=== PATIENT | male | born 1965 | race Caucasian/White ===

== ENCOUNTER → 2016-11-19 | Outpatient (CLI) | payer BC ==
[~2016-11-19] MED LIST: FINA5TAB PO; MULT-506 PO; SIMV20TA2 PO
--- NOTE | 2016-11-19 12:34 | DIAGNOSTIC IMAGING REPORT ---
ABDOMINAL ULTRASOUND COMPLETE HISTORY: Generalized abdominal pain.. COMPARISON: None. FINDINGS: Pancreas: The pancreas demonstrates a normal echotexture. Liver: There is a 7 mm septated cyst within the right hepatic lobe. There is a 2 mm of the calcification. There are 2 hyperechoic foci within the right hepatic lobe measuring 1.2 and 0.7 cm in size. Gallbladder: No gallbladder wall thickening. No gallstones. CBD: 5 mm. Kidneys: No hydronephrosis. Best seen on image 70, there is a possible 1.2 cm hypoechoic lesion within the upper pole of the left kidney. Spleen: Normal in size. Aorta: Normal in caliber. Bladder: Unremarkable. IVC: Patent. IMPRESSION: 1. There are 2 similar-appearing hyperechoic lesions within the right hepatic lobe with the largest measuring 1.2 cm. These are technically indeterminate by ultrasound but likely represent hemangiomas. 2. There is a 7 mm septated cyst within the right hepatic lobe. 3. No gallstones. 4. Possible 1.2 cm hypoechoic lesion within the upper pole the left kidney. This does not clearly represent a simple cyst. Dedicated renal CT is recommended for further evaluation. Electronically signed by: Gee Lawson M.D. 11/19/2016 12:33 PM Dictated Date/Time: 11/19/2016 12:29 PM
== END | disposition home or self-care (01) ==
LOC: C.ULTR 11:26
PROVIDERS: ATTEND Internal Medicine Gastroenterology
DX: K76.89 Other specified diseases of liver (principal); R93.422 Abnormal radiologic findings on diagnostic imaging of left kidney

== ENCOUNTER → 2016-11-28 | Outpatient (CLI) | payer BC ==
[~2016-11-28] MED LIST changes: +OPTIRAY 320 IV PRN
--- NOTE | 2016-11-28 08:57 | DIAGNOSTIC IMAGING REPORT ---
CT SCAN OF THE ABDOMEN COMBO RENAL MASS PROTOCOL CLINICAL HISTORY: Follow-up left renal lesion questioned by ultrasound. COMPARISON STUDY: Abdominal ultrasound dated 11/19/2016. TECHNIQUE: Before and following the IV administration of 120 cc of Optiray 320, CT scan of the abdomen is performed from the lung bases to the pelvic inlet utilizing the renal mass protocol. Images are reviewed in the axial, sagittal, and coronal planes. IV contrast was administered without complication. Automated dose control exposure was utilized. CT DOSE: 662.83 mGy.cm FINDINGS: Lung bases: The heart is normal in size and without pericardial effusion. The lung bases are clear. A small hiatal hernia is noted. Liver: The contrast-enhanced liver is normal in size, contour, and attenuation. There is no intrahepatic biliary ductal dilatation. A 12 mm hypodense lesion in the left lobe seen on image #86 fills in with contrast on the delayed images and almost certainly represents a hemangioma when correlated with the recent abdominal ultrasound. Small hepatic cysts measure up to 11 mm. Additional subcentimeter hepatic hypodensities also likely represent cysts but are too small for definitive characterization. Focal fatty infiltration is seen adjacent to the falciform ligament. The hepatic veins and portal veins are patent. Gallbladder: Unremarkable. Spleen: Normal in size and attenuation. Pancreas: Unremarkable. Adrenal glands: Unremarkable. Kidneys: No renal calculi are identified on the unenhanced series. The contrast enhanced kidneys are normal in size and without hydronephrosis. The kidneys enhance and excrete symmetrically. There is no enhancing renal cortical mass. No evidence of urothelial lesion is seen within the renal pelvis bilaterally or along the course of the proximal ureters. A circumaortic left renal vein is incidentally noted. Abdominal vasculature: The abdominal aorta is normal in course and caliber. Bowel: Visualized portions of the small bowel and colon are normal in course and caliber. The appendix is well-visualized and normal. Peritoneum: There is no intraperitoneal free air or abdominal ascites. There is a fat-containing umbilical hernia. Lymphadenopathy: None. Skeletal structures: No lytic or blastic lesions are seen. There is minimal spondylotic change at L4-L5 and L5-S1. IMPRESSION: 1. No enhancing renal mass is identified. The lesion questioned by ultrasound was likely artifactual. 2. No acute infectious or inflammatory findings are identified in the abdomen. 3. See above discussion for details. Electronically signed by: Chris Mojica M.D. 11/28/2016 8:56 AM Dictated Date/Time: 11/28/2016 8:49 AM
== END | disposition home or self-care (01) ==
LOC: C.CTS 08:24
PROVIDERS: ATTEND Internal Medicine Gastroenterology
DX: N28.9 Disorder of kidney and ureter, unspecified (principal)